=== PATIENT | male | born 1980 | race Caucasian/White ===

== ENCOUNTER 2021-03-16 07:02 | Emergency (ER) | payer BC ==
[2021-03-16] MEDS ORDERED: Amoxicillin/Clavulanate K 875-125 MG Tab PO ONE (07:24)
--- NOTE | 2021-03-16 07:24 | EDM.PDOC ---
ED HPI GENERAL MEDICAL PROBLEM - General Chief Complaint: ENT Problem Stated Complaint: SWOLLEN GLAND/ HARD TO SWALLOW Time Seen by Provider: 03/16/21 07:16 Source of Information: Reports: Patient History Limitations: Reports: No Limitations - History of Present Illness INITIAL COMMENTS - FREE TEXT/NARRATIVE: 41-year-old male presents to the ED for evaluation of persistent pain and swelling under his right mandible and tongue. 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 Recent infection started last Friday i.e. a week ago. He was seen in clinic and ultrasound was done to show no abscess. He was not started on any antibiotic therapy. He denies any fever. Increasing pain with swelling and trouble sticking out his tongue. He feels this is interfering with his ability is to talk normally as well. Feels more of a swelling under his tongue at present. This was worse over the last 48 hours. Onset: Gradual Onset Date: 03/09/21 Duration: Day(s):, Constant, Getting Worse Location: Reports: Neck Quality: Reports: Ache, Throbbing (Swelling underneath his right mandible in the distribution of the submandibular gland.) Severity: Moderate Improves with: Reports: Medication Worsens with: Reports: Other Context: Denies: Activity (Certain foods make it much worse.), Exercise, Lifting, Sick Contact, Trauma, Other Associated Symptoms: Denies: No Other Symptoms, Confusion, Chest Pain, Cough, cough w sputum, Diaphoresis, Fever/Chills, Headaches, Loss of Appetite, Malaise, Nausea/Vomiting, Rash, Seizure, Shortness of Breath, Syncope, Weakness 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.) Throat Pain Score (Numeric/FACES): 8 - Related Data Allergies Allergy/AdvReac Type Severity Reaction Status Date / Time No Known Allergies Allergy Verified 03/16/21 07:19 Home Meds: Home Meds Amoxicillin/Potassium Clav [Augmentin 875-125 Tablet] 1 each PO BID #20 tablet 03/16/21 [Rx] Past Medical History HEENT History: Reports: Other (See Below) (Recurrent problems with submandibular gland sialitis) Social & Family History - Living Situation & Occupation Living situation: Reports: Occupation: Employed ED ROS ENT - Review of Systems Review Of Systems: See Below Constitutional: Reports: Decreased Appetite. 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 and in the floor of his mouth.) Respiratory: Reports: No Symptoms Cardiovascular: Reports: No Symptoms Endocrine: Reports: No Symptoms GI/Abdominal: Reports: No Symptoms : Reports: No Symptoms Musculoskeletal: Reports: No Symptoms Skin: Reports: No Symptoms Neurological: Reports: No Symptoms Psychiatric: Reports: No Symptoms Hematologic/Lymphatic: Reports: No Symptoms Immunologic: Reports: No Symptoms ED EXAM, ENT - Physical Exam Exam: See Below Exam Limited By: No Limitations General Appearance: Alert, WD/WN, No Apparent Distress, Other (Temperature is 36.9 degrees with a heart rate of 68 sinus. Respiratory 16 with O2 sats of 100% room air. BP 1 3875.) Eye Exam: Bilateral Eye: Normal Inspection, PERRL Ears: Normal TMs Mouth/Throat: Other (Patient has firmness and thickening of the submandibular duct on the right side with no obvious purulent material at the opening. On examination with glove in the oral cavity there is significant swelling in the floor the mouth on the right side. This is quite evident externally as well with marke). No: Throat Pain, Throat Swelling, Tongue Swelling Head: Atraumatic, Normocephalic Neck: Normal Inspection, Supple, Non-Tender, Full Range of Motion. No: Lymphadenopathy (L), Lymphadenopathy (R) Respiratory/Chest: No Respiratory Distress, Lungs Clear, Normal Breath Sounds, No Accessory Muscle Use Cardiovascular: Normal Peripheral Pulses, Regular Rate, Rhythm, No Edema, No Gallop, No Murmur, No Rub GI/Abdominal: Normal Bowel Sounds, Soft, Non-Tender, No Organomegaly, No Abnormal Bruit, No Mass, Pelvis Stable Neurological: Alert, Oriented, CN II-XII Intact, Normal Cognition, Normal Gait Course - Vital Signs Last Recorded V/S: Last Vital Signs Temp 36.9 C 03/16/21 07:16 Pulse 68 03/16/21 07:16 Resp 16 03/16/21 07:16 BP 138/75 03/16/21 07:16 Pulse Ox 100 03/16/21 07:16 - Orders/Labs/Meds Meds: Medications Discontinued Medications Generic Name Dose Route Start Last Admin Trade Name Freq PRN Reason Stop Dose Admin Amoxicillin/Clavulanate Potassium 1 tab 03/16/21 07:24 Amoxicillin/Clavulanate K 875-125 Mg Tab PO 03/16/21 07:25 ONETIME ONE - Radiology Interpretation Free Text/Narrative:: 41-year-old male presents to the ED with a 1 week history of increased swelling and pain under the right mandible that is now radiating to the floor of his mouth making it difficult to stick his tongue out and he feels it is interfering with his ability to speak normally. He has had problems with submandibular cellulitis on the right side on a few occasions in the past. He has an ear nose and throat appointment for this March 26. On examination he has marked swelling and pain of the right submandibular gland. The gland is very firm to palpation. The report is that he had an ultrasound a week ago which did not show anything sinister. He also has significant thickening of the entire duct under his tongue. I cannot palpate a definitive stone or mass in the duct. Nasima n he will be advised to stay well-hydrated. He will suck on soft candy such as lifesavers and were others to promote saliva production. He will be started on antibiotics Augmentin 875/1 2 5 mg twice daily for the next 10 days. Hot packs to the area 1/2-hour out of every 3 hours as able. Departure - Departure Time of Disposition: 07:24 Disposition: Home, Self-Care 01 Condition: Fair Clinical Impression: Submandibular duct obstruction - Discharge Information *PRESCRIPTION DRUG MONITORING PROGRAM REVIEWED*: Not Applicable *COPY OF PRESCRIPTION DRUG MONITORING REPORT IN PATIENT HIREN: Not Applicable Prescriptions: Amoxicillin/Potassium Clav [Augmentin 875-125 Tablet] 1 each PO BID #20 tablet Referrals: PCP,Not In Area [Primary Care Provider] - Forms: ED Department Discharge Additional Instructions: Evaluation in the emergency room this morning in regards to painful swelling u nder your right mandible that is gradually worsened over the last week. Examination reveals swelling of the entire submandibular duct under your tongue and the submandibular gland under the jaw or mandible. Treatment is hot compresses to the area for 20 minutes out of every 3 hours. Sucking on smooth candies or lifesavers will help produce more saliva. Stay well-hydrated. Motrin 600 mg every 6 hours as needed for pain relief. Start Augmentin 875/1 2 5 mg tablet twice daily for the next 10 days to clear infection up. It starts should start to improve over the next 36 to 72 hours. Follow-up with your nose and throat surgeon as planned. Sepsis Event Note (ED) - Focused Exam Vital Signs: Vital Signs Temp Pulse Resp BP Pulse Ox 03/16/21 07:16 36.9 C 68 16 138/75 100
== END 2021-03-16 07:48 | disposition home or self-care (01) ==
LOC: JD.ED 07:02
DX: K11.8 Other diseases of salivary glands (principal)
CPT/HCPCS: 99283; A9270